=== PATIENT | male | born 1965 | race Two or more races ===

== ENCOUNTER 2020-09-13 17:37 | Emergency (ER) | payer BC ==
[~2020-09-13] VITALS: Ht 177.8 cm; Wt 70.0 kg
[2020-09-13 17:40] VITALS: BP 138/76
[2020-09-13] MEDS ORDERED: ACETAMINOPHEN 500MG TABLET PO ONE (19:00)
== END 2020-09-13 19:49 | disposition home or self-care (01) ==
LOC: ER 17:37
DX: S80.12XA Contusion of left lower leg, initial encounter (principal); V03.90XA Pedestrian on foot injured in collision with car, pick-up truck or van, unspecified whether traffic or nontraffic accident, initial encounter; Y93.89 Activity, other specified; Y92.488 Other paved roadways as the place of occurrence of the external cause
CPT/HCPCS: 73590; 99283